=== PATIENT | male | born 1970 | race Caucasian/White ===

== ENCOUNTER → 2016-10-03 | Outpatient (CLI) | payer OTHER ==
--- NOTE | 2016-10-08 10:02 | CARDEX ---
CARDIOPULMONARY EXERCISE REPORT Mr. Adames performed a symptom limited pulmonary stress test utilizing a step exercise protocol monitoring several cardiopulmonary parameters including gas exchange. His overall performance was essentially normal. He had a very mild reduction in aerobic capacity at 70% to 80% but did not exercise to his cardiopulmonary max. He achieved 76% of his predicted maximum heart rate and his ventilatory reserve at the end of exercise was adequate at 33%. His pulmonary response was normal although he was quite dyspneic. There was no oxygen de-saturation and his ventilation perfusion ratios at rest, exercise and recovery were normal and, as I mentioned, he had adequate ventilatory reserve at the end of exercise although he was quite dyspneic. His cardiovascular response was also normal. He experienced no chest pain or light-headedness. His blood pressure response was normal. His end-tidal C02 response, an indirect indicator of cardiac output response to exercise was also normal and piper to greater than 4. His pulmonary capacitance was also normal suggesting no pulmonary vascular impairment. IMPRESSION: In summary, there is no significant cardiopulmonary dysfunction during this exercise study but there is a mild reduction in aerobic capacity and he did develop significant dyspnea with exertion. This would be suggestive some degree of de-conditioning. Clinical correlation is required but it might be helpful for the patient to continue in an aerobic exercise routine and, if symptoms persisted, a follow-up study at some point in the future for comparison. Anamika Tierney M.D. lt 10/08/16 cc: Dr. Maravilla via
== END ==
LOC: HRSP 12:43
PROVIDERS: ATTEND Internal Medicine
DX: R06.02 Shortness of breath (principal)
CPT/HCPCS: 94621